=== PATIENT | male | born 1990 | race Caucasian/White ===

== ENCOUNTER 2017-01-23 02:41 | Emergency (ER) | payer SELFPAY ==
[2017-01-23] MEDS ORDERED: NS 0.9% 1000 ML* 1,000 ML IV ONE (05:03)
[2017-01-23 06:16] LABS: Benzodiazepine Urine Screen None Detected (None Detect)
[2017-01-23 06:49] VITALS: BP 108/48
--- NOTE | 2017-01-31 21:58 | ED ---
Temitope Perez Emily, scribed for Anand Blue MD on 01/23/17 at 0507 . Substance Abuse/Use - HPI Summary HPI Summary: LEVEL 5 CAVEAT ETOH INTOXICATION This patient is a 26 year old M [place] [facility] [place] friend with a chief complaint of ETOH intoxication. - History Of Current Complaint Chief Complaint: EDSubstanceAbuse Stated Complaint: ETOH Time Seen by Provider: 01/23/17 05:03 Hx Obtained From: Other: - Friend PMH/Surg Hx/FS Hx/Imm Hx Previously Healthy: No - Unable to obtain full PMHx due to level 5 caveat - ETOH intoxication Opthamlomology History: Denies: Hx Legally Blind EENT History: Denies: Hx Deafness - Immunization History Date of Tetanus Vaccine: utd Date of Influenza Vaccine: none Infectious Disease History: No Infectious Disease History: Denies: Traveled Outside the [place] in Last 30 Days - Family History Known Family History: Positive: Unknown - Social History Occupation: Student Alcohol Use: Weekly Substance Use Type: Reports: None Smoking Status (MU): Never Smoked Tobacco Review of Systems - ROS Summary Review of Systems Summary: UNABLE TO OBTAIN ROS DUE TO LEVEL 5 - ETOH INTOXICATION All Other Systems Reviewed And Are Negative: No Physical Exam - Summary Physical Exam Summary: Appearance: appears inebriated Skin: Warm, Dry, No rash Eyes: Normal, PERRL, EOMI, sclera anicteric ENT: Normal Neck: Supple, nontender Respiratory: Clear to auscultation Cardiovascular: S1, S2, no murmur, no rub, no gallop Abdomen: Soft, nontender, no organomegaly Bowel sounds: Present Musculoskeletal: Normal, Strength/ROM Intact, no edema, pulses symmetrical Neurological: Arousable, not alert, no verbal output Psychiatric: dressed appropriately Triage Information Reviewed: Yes Vital Signs On Initial Exam: Initial Vitals Temp Pulse Resp BP Pulse Ox 97.8 F 62 16 112/63 98 01/23/17 02:49 01/23/17 02:49 01/23/17 02:49 01/23/17 02:49 01/23/17 02:49 Vital Signs Reviewed: Yes Diagnostics - Vital Signs Vital Signs Temp Pulse Resp BP Pulse Ox 01/23/17 02:49 97.8 F 62 16 112/63 98 - Laboratory Lab Statement: Any lab studies that have been ordered have been reviewed, and results considered in the medical decision making process. Course/Dx - Course Assessment/Plan: LEVEL 5 CAVEAT ETOH INTOXICATION. This patient is a 26 year old M presenting to [facility] [place] friend with a chief complaint of ETOH intoxication. Physical Exam Findings. Arousable, not alert, appears inebriated , no verbal output. Medical Decision Making. Test results with no significant abnormalities except for serum alcohol. In the ED course the patient was given fluids. Patient will be discharged with follow up from PCP. The patient is agreeable with this plan. - Diagnoses Provider Diagnoses: Alcohol intoxication Discharge - Discharge Plan Condition: Good Disposition: HOME Patient Education Materials: Alcohol Intoxication (ED) The documentation as recorded by the Temitope skelton Emily accurately reflects the service I personally performed and the decisions made by me, Anand Blue MD.
== END 2017-01-23 06:48 | disposition home or self-care (01) ==
LOC: ED 02:41
DX: F10.129 Alcohol abuse with intoxication, unspecified (principal)
CPT/HCPCS: 36415; 80307; 80320; 99282; G0480